=== PATIENT | male | born 1950 | race Caucasian/White ===

== ENCOUNTER 2021-08-25 18:06 | Inpatient (IN) | payer OTHER, BC ==
[~2021-08-25] VITALS: Ht 167.6 cm; Wt 124.6 kg
--- NOTE | ~2021-08-25 | EEG ---
[facility] [place] [address] ELECTROENCEPHALOGRAM Name: GABY WILL Room #: 241-P ADM IN M.R.#: [id number] Admission: 08/25/21 Attend Phys: Flaco Liu DO Discharge: Date of : 50 Report #: [id number] THIS REPORT FOR: //name// DATE OF SERVICE: 08/29/2021 This EEG was done by placing the electrode by standard 10-20 system of electrode placement. Both referential and sequential montages were used for recording. Background activity in this patient's EEG is very poorly formed and disorganized. It is a low voltage. A does appear to be about 4 Hz and 10 microvolt. Photic stimulation is unremarkable. No active epileptiform activity was noted. IMPRESSION: Severely abnormal EEG, which can be consistent with encephalopathy. However, the finding is nonspecific and therefore clinical correlation is recommended. By: [id number] Gabino Mcmillan MD /nt
[~2021-08-25 18:06] MED LIST: ADULT LOW DOSE81 MG; AUGMENTIN 875875 M1 PO; CORGARD40 M1; HYZAAR 100-251 EACH; MULTIVITAMINS; NORCO 5-325 TA1 EACH PO; OYSTER SHELL C1 EA12; VITAMIN C + RO500 MG
[2021-08-25 18:07] VITALS: BP 135/73
[2021-08-25 20:01] LABS: CALCIUM 9.8 mg/dL (8.5-10.1); CREATININE 1.5 mg/dL (0.7-1.3)
[2021-08-25 21:12] LABS: ABSOLUTE NEUTROPHILS 10.3 thou/uL (1.4-8.2); BASOPHILS 0.5 % (0.0-2.0); EOSINOPHILS 2.5 % (0.0-3.0); HEMATOCRIT 47.1 % (42.0-52.0); LYMPHOCYTES 8.6 % (24.0-44.0); MCH 33.1 pg (26.0-34.0); MCV 97.5 fL (80.0-100.0); MONOCYTES 8.1 % (1.0-8.0); PLATELET COUNT 249 thou/uL (150-400); POLYS 80.3 % (36.0-66.0); RBC 4.83 mil/uL (4.50-6.00); RDW 13.9 % (10.5-14.5); WBC 12.9 thou/uL (4.0-11.0)
[2021-08-25] MEDS ORDERED: GLIMEPIRIDE4 MG PO (23:16)
[2021-08-25] MEDS ORDERED: FUROSEMIDE 40 M40 M1 PO (23:17)
[2021-08-25] MEDS ORDERED: PROTONIX40 M2 PO (23:17)
[2021-08-25] MEDS ORDERED: SPIRONOLACTONE100 M1 PO (23:17)
[2021-08-25 23:42] VITALS: BP 131/57
[2021-08-25 23:57] VITALS: BP 131/56
--- NOTE | 2021-08-26 04:44 | NUR ---
PT WAS ADMITTED TO THE UNIT FROM THE ER IN A STABLE CONDITION.PT DENIED PAIN SO FAR.ADMISSION COMPLETED.PT HAD ONE EPISODE OF N/V,MED GIVEN,EFFECTIVE.REDNESS NOTED TO HIS BUTTOCKS.ERYTHEMA TO HIS RLE.BLISTER TO THE SOLE OF HIS R FOOT.BLE EDEMA NOTED FEET ELEVATED WHILE IN BED.PT RESTING ON HIS BED AT THIS TIME.CALL LIGHT WITHIN REACH.
[2021-08-26 05:54] LABS: HEMATOCRIT 48.1 % (42.0-52.0); HEMOGLOBIN 15.2 gm/dL (14.0-18.0); MCH 33.2 pg (26.0-34.0); MCHC 31.7 g/dL (28.0-37.0); RBC 4.59 mil/uL (4.50-6.00); RDW 15.5 % (10.5-14.5); WBC 9.6 thou/uL (4.0-11.0)
[2021-08-26 05:56] LABS: MCV 104.9 fL (80.0-100.0)
[2021-08-26 06:09] LABS: CALCIUM 9.9 mg/dL (8.5-10.1); CREATININE 1.4 mg/dL (0.7-1.3); POTASSIUM 4.2 mmol/L (3.5-5.1)
--- NOTE | 2021-08-26 16:43 | NUR ---
PT ASSESSED AT START OF SHIFT. ADMITTED OVERNOC FROM THE ER. RESTING IN BED. NAPPING OFF AND ON. APPETITE IS GOOD. STATES RT KNEE SOMEWHAT PAINFUL BUT NOT NEEDING MED. KNEE SWOLLEN AND PINK. ORTHO CONSULT FOR SEPTIC ARTHRITIS PLACED. UNASYN STARTED PER ORDERS.
[2021-08-26 16:59] VITALS: BP 144/43
[2021-08-26 20:50] VITALS: BP 132/44
--- NOTE | 2021-08-27 04:01 | NUR ---
Assumed care on 08/26/21 @ 1900, sleeping in bed. HRRR, Lung sounds CTA bilat, ABD BS present x 4Q. Lower extremities edemitous right +3 and left +2. IV site Right AC, SL. Antibiotic provided as ordered and tolerated well. FSBS 157, sliding scale Lispro 3U provided. Bed in low positiion, bed alarm set. Will continue to monitor for safety and comfort as per unit protocol.
[2021-08-27 06:19] LABS: HEMATOCRIT 43.5 % (42.0-52.0); HEMOGLOBIN 14.5 gm/dL (14.0-18.0); MCH 33.1 pg (26.0-34.0); MCHC 33.2 g/dL (28.0-37.0); RBC 4.36 mil/uL (4.50-6.00); WBC 12.4 thou/uL (4.0-11.0)
[2021-08-27 06:50] LABS: MCV 99.7 fL (80.0-100.0)
[2021-08-27 07:53] LABS: CREATININE 2.1 mg/dL (0.7-1.3); MAGNESIUM 2.7 mg/dL (1.8-2.4); POTASSIUM 4.4 mmol/L (3.5-5.1)
--- NOTE | 2021-08-27 08:51 | NUR ---
High nutrition screen risk identified for wt change 2-13 lb and reduced appetite. Admit with failure to thrive and lower extremity cellulitis. Advanced age 70, lives with . Pt was in chair several days and unable to get up on own. Has lower extremity edema, also CHF history. Appetite is good while in hospital. Note SWS consult to evaluate ability to return home after discharge. Added low Na diet to diet order. Low nutrition risk.
[2021-08-27 09:03] VITALS: BP 103/55
--- NOTE | 2021-08-27 14:29 | 2DMMODE ---
[facility] [place]y [place] [address] 2 D/M-MODE ECHOCARDIOGRAM Name: GABY WILL Room #: 440-P ADM IN M.R.#: [id number] Admission: 08/25/21 Attend Phys: Flaco Liu DO Discharge: Date of : 50 Report #: [id number] THIS REPORT FOR: cc: Naina Valdez MD, Michelle R. MD Lammoglia, Francisco J. MD ~ APPROVED REPORT Study performed: 08/27/2021 13:57:27 EXAM: Comprehensive 2D, Doppler, and color-flow Echocardiogram Patient Location: Bedside Room #: 440 Status: routine BSA: 1.87 HR: 66 bpm BP: 132/44 mmHg Rhythm: NSR Other Information Study Quality: Technically Difficult Technically limited study due to body habitus, uncooperative patient. Indications Congestive Heart Failure Diabetes Hypertension/HDD Aortic Valve AoV Peak Bora.: 1.44 m/s AO Peak Gr.: 8.29 mmHg LVOT Max P.14 mmHg LVOT Max V: 1.02 m/s Mitral Valve E/A Ratio: 0.8 MV Decel. Time: 235.56 ms MV E Max Bora.: 0.74 m/s MV A Bora.: 0.94 m/s MV PHT: 68.31 ms IVRT: 110.73 ms Pulmonary Valve PV Peak Bora.: 0.80 m/s PV Peak Gr.: 2.56 mmHg [facility] [address] [place] [address] 2 D/M-MODE ECHOCARDIOGRAM Name: GABY WILL Room #: 440-P ADM IN M.R.#: [id number] Admission: 08/25/21 Attend Phys: Flaco Liu DO Discharge: Date of : 50 Report #: [id number] Pulmonary Vein P Vein S: 0.51 m/s P Vein A: 0.25 m/s P Vein D: 0.23 m/s P Vein A Dur.: 110.7 msec P Vein S/D Ratio: 2.22 Left Ventricle The left ventricle is normal size. There is normal LV segmental wall motion. There is normal left ventricular wall thickness. Left ventricular systolic function is normal. The left ventricular ejection fraction is within the normal range. LVEF is 55-60%. Grade I - abnormal relaxation pattern. Right Ventricle The right ventricle is normal size. The right ventricular systolic function is normal. Atria The left atrium size is normal. The right atrium size is normal. Aortic Valve The aortic valve is normal in structure. No aortic regurgitation is present. There is no aortic valvular stenosis. Mitral Valve The mitral valve is normal in structure. There is no mitral valve regurgitation noted. No evidence of mitral valve stenosis. Tricuspid Valve The tricuspid valve is normal in structure. There is no tricuspid valve regurgitation noted. Pulmonic Valve The pulmonary valve is normal in structure. There is no pulmonic valvular regurgitation. Great Vessels The aortic root is normal in size. IVC is normal in size and collapses >50% with inspiration. Pericardium There is no pericardial effusion. <Conclusion> The left ventricle is normal size. [facility] [place] [address] 2 D/M-MODE ECHOCARDIOGRAM Name: SUMANGABY Room #: 440-P ADM IN M.R.#: [id number] Admission: 08/25/21 Attend Phys: Flaco Liu DO Discharge: Date of : 50 Report #: [id number] There is normal left ventricular wall thickness. LVEF is 55-60%. The right ventricle is normal size. The left atrium size is normal. The aortic valve is normal in structure. The mitral valve is normal in structure. The tricuspid valve is normal in structure. The pulmonary valve is normal in structure. The aortic root is normal in size. There is no pericardial effusion. <ELECTRONICALLY SIGNED> By: Jourdan Fitzpatrick MD 08/27/21 1429 [id number] Jourdan Fitzpatrick MD /INF
--- NOTE | 2021-08-27 16:11 | NUR ---
Pt. with mental status change so BRAKE COUPL[address] FREIGHT activated-see flowsheet
[2021-08-27 17:17] VITALS: BP 105/50
--- NOTE | 2021-08-27 17:52 | NUR ---
Patient is alert and oriented to person, eating breakfast with assisted. Vital sign and blood sugar stable. Called a rapid respond around 1315 for not waking up, Ct of head normal. Patient is transfer to [facility] for higher level of care. Called Fiona his to inform her about her condition.
[2021-08-27 18:03] VITALS: BP 97/72
[2021-08-27 19:05] VITALS: BP 109/50
--- NOTE | 2021-08-27 19:47 | NUR ---
PT CAME FROM FOR AMS AT 1800PM, PT IS SLEEPING , PT OPENS HIS EYES BY VOICE, BUT PT DOES NOT TALKING AND PT DOES NOT FOLLOW COMMANDS, DR STATON HAS CONSULT, PT IS ON ROOM AIR , PT'S VS AND O2SAT ARE NORMAL AT 1800PM, RN HAS REPORTED TO NEXT SHIFT TO KEEP EYES ON PT. CT SCAN HEAD ,RESULTS SHOW NEGATIVE AT THIS TIME.
[2021-08-28] VITALS (68 sets, daily range): BP systolic 81–141; BP diastolic 32–64
--- NOTE | 2021-08-28 01:15 | NUR ---
Increased lethary, decreased oxygen saturation, needed 4L oxygen from room air for sat 93-94 %. Low blood pressure. NSR rate 60's, Rapid response activated.
[2021-08-28 01:39] LABS: BE(vivo) 0.8 mmol/L (-2 to +3); HCO3 22.7 mmol/L (22.0-26.0); PCO2 29.4 mmHg (35.0-45.0); pH 7.505 (7.360-7.450); sO2 95.1 % (92.0-98.0)
[2021-08-28 01:59] LABS: ABSOLUTE NEUTROPHILS 9.5 thou/uL (1.4-8.2); BASOPHILS 0.4 % (0.0-2.0); HEMATOCRIT 44.2 % (42.0-52.0); HEMOGLOBIN 14.6 gm/dL (14.0-18.0); LYMPHOCYTES 10.1 % (24.0-44.0); MCH 32.3 pg (26.0-34.0); MCV 97.8 fL (80.0-100.0); MONOCYTES 9.6 % (1.0-8.0); POLYS 77.9 % (36.0-66.0); RBC 4.52 mil/uL (4.50-6.00); RDW 13.8 % (10.5-14.5); WBC 12.2 thou/uL (4.0-11.0)
--- NOTE | 2021-08-28 02:00 | NUR ---
Fiona appraised of progress, plan to intubate and transfer to ICU 241.
[2021-08-28 02:12] LABS: PLATELET COUNT 195 thou/uL (150-400)
[2021-08-28 02:25] LABS: ALBUMIN 1.8 g/dL (3.4-5.0); CALCIUM 9.4 mg/dL (8.5-10.1); CREATININE 2.8 mg/dL (0.7-1.3); MAGNESIUM 2.7 mg/dL (1.8-2.4); POTASSIUM 4.5 mmol/L (3.5-5.1); TOTAL PROTEIN 6.3 g/dL (6.4-8.2)
--- NOTE | 2021-08-28 03:06 | NUR ---
Intubated at bedside, report given to Janeth FLOYD. Transfered to ICU.
[2021-08-28 03:55] LABS: BE(vivo) 0 mmol/L (-2 to +3); HCO3 21.5 mmol/L (22.0-26.0); PCO2 27.7 mmHg (35.0-45.0); PO2 167.6 mmHg (80.0-100.0); pH 7.508 (7.360-7.450); sO2 99.3 % (92.0-98.0)
--- NOTE | 2021-08-28 03:58 | NUR ---
PT TRANSFERED TO ICU FROM 3W AFTER A RAPID RESPONSE WAS CALLED. REPORT GIVEN FROM EVERETT KARIMI. PT WAS INTUBATED ON 3W AND TRANSPORTED VIA CART BEING BAGGED BY RT. PT WAS ATTACHED TO ICU MONITOR AND ASSESSED PER ICU PROTOCOL. PT CONNECTED TO VENT. PORFIRIO CABELLO SPOKE WITH DR. BARAHONA REGARDING PTS CONDITION. SACHI SPOKE WITH PTS FAMILY.
--- NOTE | 2021-08-28 07:39 | NUR ---
ASSUMED CARE OF PT AT 0700. PT ON LEVOPHED AND VERSED. PT VITAL SIGNS STABLE
--- NOTE | 2021-08-28 08:52 | NUR ---
Pt HSE COORDINATOR EARLY THIS A.M.. INTUBATED AT B/S ON 4S AND THEN TRANSFERRED TO ICU. WILL NOW PLACE P.T. EVAL ON HOLD UNTIL NEW ORDERS RECEIVED.
--- NOTE | 2021-08-28 10:03 | NUR ---
WOUND CONSULT: THIS PATIENT WAS ASSESSED IN ICU TODAY. I WAS CONSULTED TO SEE THE RIGHT HEEL BULLA BLISTER THAT IS STABLE AND IT MEASURES 7 X 7 X 0. CURRENTLY BEING OFFLOADED WITH PILLOWS. THE LEFT DORSUM FOOT HAS A SMALL BRIUSED AREA MEASURES 0.5 X 2 X 0 WHICH IS CONSISTANT WITH S/S OF A DTI OF UKNOWN ORIGION. ALBUMIN IS 1.8 AND JULIO IS 15. THE WOUNDS WERE NOTED ON ADMISSION. RECOMMENDATIONS: -PRAFO BOOTS BILATERALLY ON AT ALL TIMES. -PAINT THE RIGHT HEEL AND LEFT DORSUM FOOT WITH BETADINE, LEAVE NICOLAS FOR NOW. -Q2H TURNS. -PRN: THE RIGHT HEEL BILISTER IS UNSTABLE, COVER WITH XEROFORM/ABD/KERLIX CHANGE DAILY. DISCUSSED WITH EVERETT
--- NOTE | 2021-08-28 10:11 | HC ---
[facility] [place] [address] CONSULTATION Name: GABY WILL Room #: 241-P ADM IN M.R.#: [id number] Admission: 08/25/21 Attend Phys: Flaco Liu DO Discharge: Date of : 50 Report #: [id number] THIS REPORT FOR: cc: Naina Valdez MD,Naina Mcmillan,Gabino Gonzales MD ~ DATE OF SERVICE: 08/27/2021 HISTORY OF PRESENT ILLNESS: This is a 70-year-old male patient who was evaluated by me for the possibility of stroke. I talked to the nurses looking after this patient and they got a report that this patient has been fluctuating in his mental status since morning, and this afternoon, they activated the rapid response team because the patient was completely unresponsive. On reviewing the record, it looks like the patient at that time underwent a CT angiogram and CT of the head and a neurology consultation was requested this evening to evaluate this patient further. I do not get a very good history in this patient. I called the patient's , she is not a very good historian either. She referred to me to the patient's doctor, Dr. Valdez, but I cannot get hold of her now. He started having knee pain for about a week ago. He has swelling of right leg and to some extent both legs. From the Emergency Room note, it looks like he was in the Emergency Room, covered with urine and faeces. He apparently has a history of diabetes, hypertension, obesity, osteoarthritis, and congestive heart failure. There is some question of cellulitis, and there are multiple consultants involved in the patient's care. That was his relevant review of system. I talked to the and asked her mother how was in his memory before all this started. I do not get a good history, but she says this has happened in about last couple of weeks that he has gone down rapidly. PAST MEDICAL HISTORY: Apparently is negative for any stroke. FAMILY HISTORY: According to her is negative for early dementias. SOCIAL HISTORY: He apparently does not smoke or drink any alcohol. PHYSICAL EXAMINATION: GENERAL: The patient is completely unresponsive. He does not open his eyes for me. I talked to the nurses, he has been shifted to a different floor, but she said it is not. They have not given him any medication. I cannot tell about the focality because he does not move anything. In fact, he does not do anything. He does not have any meningeal sign. VITAL SIGNS: Blood pressure is 109/50, respirations 20, pulse is 66, temperature is 97.6. CARDIAC: Unremarkable. LABORATORY DATA: White count is 12.4, platelet count is 79. [address] [address] CONSULTATION Name: GABY WILL Room #: 241-P [facility] IN M.R.#: [id number] Admission: 08/25/21 Attend Phys: Flaco Liu DO Discharge: Date of : 50 Report #: [id number] IMPRESSION: The best I can tell, the whole day he had altered mental status. They were just thinking he will improve, but later on in the afternoon when he did not improve, they activated the rapid response team. It is difficult to tell if he had a stroke or not, but even if he did, he is outside the window for TPA and he is not a candidate for thrombectomy because no thrombus has been found on CT angiogram. From the record, it looks like the patient had a CT scan as well as CT angio done around 3:30 today. So, he got some dye and his creatinine was 2.1. I pointed out that to Dr. Barajas and his nurse practitioner and they indicated they are already aware of it and they will be taking care of the fluid protocol, which is going to be difficult in this patient because of his congestive heart failure and they will be addressing that and we will defer to them. Neurologically, I would like to do an MRI and an EEG in this patient. I will schedule both of them and follow up and see if there is anything neurologically we can do. More than 50 minutes of time was spent taking care of this patient today and majority was spent counseling and coordinating his care by talking with the patient's and multiple other healthcare professional and reviewing his imaging studies. <ELECTRONICALLY SIGNED> By: Gabino Mcmillan MD 08/28/21 1011 05 53 Gabino Mcmillan MD /nt
--- NOTE | 2021-08-28 11:10 | NUR ---
Patient initially came to ER and he hurt his knee and unable to move or walk. EMS noted he was disheveled. Patient on 4S and became less responsive. Transferred to ICU. Sp with RN, patient unresponsive. She just sp with and updated. She reports said he was fine a week ago before knee injury. Called and left message to call casemgt. Patient to have MRI today.
--- NOTE | 2021-08-28 13:31 | NUR ---
A RIGHT IJ CENTRAL LINE WAS PLACED PER HOSPITAL POLICY AFTER A BEDSIDE TIMEOUT WAS COMPLETED. THE 25CM LINE WAS ADVANCED TO 7CM EXTERNAL AND SECURED. A STAT CHEST XRAY CONFIRMED THE LINE IS IN ADEQUATE POSITION FOR USE
--- NOTE | 2021-08-28 19:18 | NUR ---
PT NOT PROGRESSING TOWARD PLAN OF CARE AEB DECREASE IN MENTAL STAUS
[2021-08-29] VITALS (34 sets, daily range): BP systolic 101–132; BP diastolic 41–63
[2021-08-29 04:12] LABS: BE(vivo) -5.9 mmol/L (-2 to +3); PCO2 23.4 mmHg (35.0-45.0); PO2 112.6 mmHg (80.0-100.0); pH 7.452 (7.360-7.450); sO2 98.4 % (92.0-98.0)
[2021-08-29 07:00] LABS: HEMATOCRIT 37.7 % (42.0-52.0); HEMOGLOBIN 12.8 gm/dL (14.0-18.0); MCH 33.2 pg (26.0-34.0); MCHC 33.9 g/dL (28.0-37.0); MCV 97.9 fL (80.0-100.0); RBC 3.86 mil/uL (4.50-6.00); RDW 13.8 % (10.5-14.5); WBC 10.6 thou/uL (4.0-11.0)
[2021-08-29 07:05] LABS: PLATELET COUNT 116 thou/uL (150-400)
[2021-08-29 07:07] LABS: ALBUMIN 1.4 g/dL (3.4-5.0); CALCIUM 8.2 mg/dL (8.5-10.1); MAGNESIUM 2.6 mg/dL (1.8-2.4); PHOSPHORUS 6.3 mg/dL (2.5-4.9); POTASSIUM 4.5 mmol/L (3.5-5.1); TOTAL BILIRUBIN 1.2 mg/dL (0.2-1.0); TOTAL PROTEIN 5.3 g/dL (6.4-8.2)
[2021-08-29 07:10] LABS: CREATININE 4.6 mg/dL (0.7-1.3)
[2021-08-29 09:36] LABS: ABSOLUTE NEUTROPHILS 8.3 thou/uL (1.4-8.2); ATYPICAL LYMPHS 1 %; METAMYELOCYTES 1 %; MYELOCYTES 2 %; NUCLEATED RBCS 1 /100WBC
[2021-08-29 09:37] LABS: ANISOCYTOSIS SLIGHT; BURR CELLS OCCASIONAL; POIKILOCYTOSIS SLIGHT
--- NOTE | 2021-08-29 15:56 | NUR ---
Case discussed in rounds. Pt is intubated but off sedation x 24hrs and is "not waking up". He is responsive to painful stimuli,cough and gag. Neuro consulted and imaging completed for concern of anoxic brain injury. spoke with unit RN but seemed confused. She told the nurse his sister was on her way to see him and provided Ilya Holguin's number to the nurse. Ilya Holguin,sister [phone], is currently out of town in [place]. MAGDY spoke with Ilya and she is not on her way to the hospital and was unaware that the pt was in ICU on life support. She has spoken with Apoorva earlier and was concerned she seemed "a bit confused today". She is having their roger Sutton go check on the pt's as she was recently in the hospital with a head injury. Dm Sutton is now at his 's home and indicates she was not eating and did not have her meds picked up from the pharmacy. The pt's dpoa /adv directive documents are locked in a safe in the home. Lesley and Apoorva tried to open it but were unsuccessful. Ilya reports she and Apoorva did discuss pt's code status and are considering DNR but did not want him "to today". Lesley Chaidez is trying to bring the pt's to the hospital this afternoon to see him but they had to get groceries and her scripts taken care of. Ilya is available via phone and has also talked with the pt's /wifes PCP Dr. Naina Valdez. The pt and his do not have children. Ilya is their next of kin relative. Unit RN has provided both contacts, and sister, to neuro to call them. Support provided. Message sent to the attending as well.
--- NOTE | 2021-08-29 19:26 | NUR ---
During this shift I was notified by pt's sister Ilya Holguin that pt's Fiona Jack fell and hit her head last week and was in the hospital for a few days. Ilya says that Fiona seems confused and forgetful at times. I asked if someone could go check on Fiona today and Ilya said she would send their niece Lesley Begum over. I then called Fiona and she did admit to being in the hospital last week and said "I have a head concussion and can't remember some recent events". I asked her if she has fallen today and she denied falling today or being in pain right now. I told her that her niece Lesley is on her way. I called case management and asked for their help reaching family and with figuring out who would be the legal next of kin if is forgetful and confused at times. They recommended that we keep both and sister updated and try to get them to agree on what is best for the pt. Then at 1730 Rogelioorah came to the ICU and I called Dr Covington to talk to them about the pt's decision. I had the niece Lesley put Ilya on speakerphone so everyone was on the same page and everyone agreed to make pt DNR right then and terminally extubate pt tomorrow after Fiona and Lesley have come to say goodbye one more time and after the well logging captain, preferably a hoop rolls operator, comes to see him. When I took down Lesley's number Fiona said "do you want my number too" and I said "no we have your number I have called and talked to you three or four times today" and Fiona said "you called me? Did you talk to me?" I told her yes I did. Lesley Begum's number is [phone] Ilya Holguin is [phone] Fiona Jack is [phone]
--- NOTE | 2021-08-29 20:21 | NUR ---
[facility] NOTIFIED OF PATIENT'S CONDITION AT 2000. REFERENCE NUMBER [id number]. INSTRUCTIONS TO NOTIFY MTN PRIOR TO COMFORT MEASURES. MTN TO FOLLOW PATIENT THROUGHOUT THE NIGHT.
[2021-08-30] VITALS (13 sets, daily range): BP systolic 112–131; BP diastolic 45–68
[2021-08-30 05:29] LABS: BE(vivo) -7.6 mmol/L (-2 to +3); HCO3 15.2 mmol/L (22.0-26.0); PCO2 24.7 mmHg (35.0-45.0); PO2 100.5 mmHg (80.0-100.0); pH 7.408 (7.360-7.450); sO2 97.8 % (92.0-98.0)
[2021-08-30 07:21] LABS: HEMATOCRIT 36.6 % (42.0-52.0); HEMOGLOBIN 12.2 gm/dL (14.0-18.0); MCH 32.9 pg (26.0-34.0); MCHC 33.4 g/dL (28.0-37.0); MCV 98.5 fL (80.0-100.0); RBC 3.72 mil/uL (4.50-6.00); RDW 14.3 % (10.5-14.5); WBC 9.7 thou/uL (4.0-11.0)
[2021-08-30 07:35] LABS: ALBUMIN 1.4 g/dL (3.4-5.0); CALCIUM 8.8 mg/dL (8.5-10.1); POTASSIUM 4.6 mmol/L (3.5-5.1); TOTAL PROTEIN 5.3 g/dL (6.4-8.2)
[2021-08-30 07:36] LABS: CREATININE 5.7 mg/dL (0.7-1.3)
[2021-08-30 08:54] LABS: ABSOLUTE NEUTROPHILS 8.4 thou/uL (1.4-8.2)
[2021-08-30 08:55] LABS: PLATELET COUNT 88 thou/uL (150-400)
[2021-08-30 08:56] LABS: PLATELET ESTIMATE DECREASED
--- NOTE | 2021-08-30 10:26 | NUR ---
Discussed during los with the attending physician. DNR now, spoke with marya sister and . Comfort care and possible going to palliative extubate today. Might need GIP with [facility]. CM left message for [facility] liaison and will reach out to family about gip. CM spoke with bedside and report provided.
--- NOTE | 2021-08-30 10:33 | NUR ---
WOUND CARE F/U: I CAME TO DO A FOLLOW UP ASSSESMENT AND THE RN TODAY STATES THAT THE PATIENTS FAMILY IS WITHDRAWING CARE. SHE STATED THE RIGHT HEEL AND LEFT DORSUM FOOT WOUNDS REMAIN INTACT THEREFORE NO CHANGES ARE NEEDED. I WILL REMAIN ON THE CASE AND ATTEMPT TO SEE THE PATIENT DAILY IF THE SITUATION CHANGES, DISCUSSED WITH RN.
--- NOTE | 2021-08-30 10:49 | NUR ---
Spoke with [facility] reference number [id number]. Pt still not a candidate for transplant as long as he still has reflexes. They asked that we call with time of or any changes to refelexes.
--- NOTE | 2021-08-30 20:14 | NUR ---
transfered pt to 437. Reported off to charge nurse up on 4th floor and notified her that had recent head injury with memory loss and when pt passes to call Fiona and Sister Ilya. All pt belongings sent home today with nephew Flaco. Pt on a morphine gtt at 5.
--- NOTE | 2021-08-31 01:40 | NUR ---
2009 TRANSFERED FROM ICU. NOT RESPONSIVE. VS STABLE. 2L O2. KIMBALL IN PLACE. GENERALIZED EDEMA NOTED. PROVIDED COMFORT CARE. WILL CONTINUE TO MONITOR.
[2021-08-31 04:29] VITALS: BP 127/61
--- NOTE | 2021-08-31 07:59 | NUR ---
ASSUMED CARE OF PATIENT THIS AM. PATIENT SUPINE IN BED WITH EYES CLOSED AND NO VISUAL REPRESENTATIONS OF PAIN OR DISCOMFORT. PATIENT ON 2L NC WITH GOOD OXYGENATION SATURATIONS BETWEEN 90-94%. IV IN WORKING CONDITION AND WOUND THERAPY ADEQUATE AT THIS TIME. WILL CONTINUE TO MINITOR FOR S/S OF DISCOMFORT OR AIR HUNGER. NOTE WILL BE UPDATED NEEDED.
[2021-08-31 08:19] VITALS: BP 134/63
--- NOTE | 2021-08-31 14:25 | NUR ---
THIS FILM LIBRARY CLERK VISITED THE PATIENT AT APPROX. 0800 HOURS AND LATER AT 1020 HOURS. FAMILY WAS PRESENT IN ROOM ON MY SECOND VISIT. PATIENT SEEMED COMFORTABLE. FAMILY SEEMED PLEASED WITH THE PATIENT'S COMFORT LEVEL. THIS FILM LIBRARY CLERK PASSED PATIENT INFORMATION TO FR. BEAULIEU FOR HIS VISITS AFTER LUNCH.
[2021-08-31 20:31] VITALS: BP 139/52
--- NOTE | 2021-09-01 07:55 | NUR ---
RECEIVED CARE OF THIS PATIENT AT 1900. PATIENT UNRESPONSIVE EVEN TO PAINFUL STIMULI. OPENS EYES AT TIMES BUT HAS A BLANK STARE. JIGAR PATENT. SARITA CUMMINGS ON. HAS GENERALIZED EDEMA. AKKerry PATENT WITH A MS DRIP. REMAINS ON BEDREST. SO SIGN OF PAIN OR RESTLESSNESS NOTED.
[2021-09-01 08:20] VITALS: BP 108/42
--- NOTE | 2021-09-01 09:46 | NUR ---
ASSUMED PT CARE THIS AM. PT IS UNRESPONSIVE AND GASPING RESP. INFUSED MORPHINE IV DRIP THIS AM PER ORDERED. PT IS BEDREST. PER HOSPICE NURSE PT WILL BE MORE COMFORTABLE ON ROOM AIR INSTEAD ON 2L NC 02. PT HAS PRAFO BOOTS AND KIMBALL CATH IN PLACE. PT HAS GENERALIZED EDEMA. PT IS ON COMFORT CARE AND WILL FOLLOW POC.
== END 2021-09-01 15:25 | DRG 871 ==
LOC: ER 18:06 → 4S 22:29 → EROBS 22:29 → 4S 23:31 → 3W 08-27 17:59 → ICU 08-28 02:32 → 4S 08-30 20:20
PROVIDERS: Internal Medicine; Nurse Practitioner Family; Psychiatry & Neurology Neuromuscular Medicine; Student in an Organized Health Care Education/Training Program; ADMIT Pediatrics; ATTEND Pediatrics
PROC: 5A1945Z Respiratory Ventilation, 24-96 Consecutive Hours (ICD-10-PCS; principal; 2021-08-28)
PROC: 0BH17EZ Insertion of Endotracheal Airway into Trachea, Via Natural or Artificial Opening (ICD-10-PCS; principal; 2021-08-28)
PROC: 02HV33Z Insertion of Infusion Device into Superior Vena Cava, Percutaneous Approach (ICD-10-PCS; principal; 2021-08-28)
DX: A41.9 Sepsis, unspecified organism (principal); J96.01 Acute respiratory failure with hypoxia; R65.21 Severe sepsis with septic shock; L03.115 Cellulitis of right lower limb; N17.9 Acute kidney failure, unspecified; L03.116 Cellulitis of left lower limb; G93.1 Anoxic brain damage, not elsewhere classified; M00.9 Pyogenic arthritis, unspecified; I50.32 Chronic diastolic (congestive) heart failure; Z68.41 Body mass index [BMI] 40.0-44.9, adult; I13.0 Hypertensive heart and chronic kidney disease with heart failure and stage 1 through stage 4 chronic kidney disease, or unspecified chronic kidney disease; N18.9 Chronic kidney disease, unspecified; D69.6 Thrombocytopenia, unspecified; Z20.822 Contact with and (suspected) exposure to COVID-19; R62.7 Adult failure to thrive; Z96.653 Presence of artificial knee joint, bilateral; M19.90 Unspecified osteoarthritis, unspecified site; E11.22 Type 2 diabetes mellitus with diabetic chronic kidney disease; I95.9 Hypotension, unspecified; E66.01 Morbid (severe) obesity due to excess calories; F03.90 Unspecified dementia, unspecified severity, without behavioral disturbance, psychotic disturbance, mood disturbance, and anxiety; Z66 Do not resuscitate; Z51.5 Encounter for palliative care; Z82.49 Family history of ischemic heart disease and other diseases of the circulatory system; Z83.3 Family history of diabetes mellitus
CPT/HCPCS: 10078; 10102; 10879